=== PATIENT | male | born 1935 | race Caucasian/White ===

== ENCOUNTER 2016-07-25 11:17 | Observation (INO) | payer OTHER ==
--- NOTE | ~2016-07-25 | EKG ---
PATIENT: YANI BRUNSON UNIT #: [id number] Ventricular Rate: 75 BPM Atrial Rate: 258 BPM QRS Duration: 66 ms Q-T Interval: 418 ms QTC Calculation(Bezet): 466 ms P Neihart: 92 degrees Calculated R Neihart: 0 degrees Calculated T Neihart: 56 degrees Diagnosis Line: Atrial flutter with variable A-V block Diagnosis Line: Low voltage QRS Diagnosis Line: Septal infarct (cited on or before 25-JUL-2016) Diagnosis Line: Abnormal ECG Diagnosis Line: When compared with ECG of 22-JUN-2010 10:21, Diagnosis Line: Atrial flutter has replaced Sinus rhythm Diagnosis Line: ST now depressed in Inferior leads Diagnosis Line: QT has lengthened Diagnosis Line: Confirmed by LAUREL SAVAGE MD ([id number]) on Diagnosis Line: 07/25/2016 2:05:08 PM INTERPRETING MD: JANETTE ROGER
--- NOTE | ~2016-07-25 | CT71 ---
[facility] A Service of [facility] & [facility] RADIOLOGY TEXT RESULTS PATIENT: YANI BRUNSON LOCATION: [facility] 302-01 : 34 UNIT #: [id number] AGE: [address]: Vega Bender MD SEX: M ORDER DR: [id number] [facility] [place] [address] [facility] [place] [facility]. [place], [place] [address] [id number] MR#: [id number] Acc #: [id number] NAME: YANI BRUNSON : 1935 SEX: M STUDY DATE/TIME: 07/25/2016 13:22 UNIT: [place] ROOM: STUDY DESCRIPTION: CT Head Wo Contrast Attending Physician: Robert Sanchez M.D. Ordering Physician: Robert Sanchez M.D. Primary Care Physician: Tyson Mendosa M.D. MEDICAL IMAGING REPORT This report is preliminary unless electronic signature is present EXAM CT scan of the head without contrast INDICATIONS Ataxia, multiple falls in the last few weeks, slurred speech since yesterday. TECHNIQUE Unenhanced images were obtained through the brain. This CT exam was performed with one or more of the following radiation dose reduction techniques: automatic exposure control, adjustment of mA and/or kV according to patient size, and iterative reconstruction. FINDINGS There is mild generalized atrophy. There are no masses or extraaxial fluid collections or hemorrhage. IMPRESSION Mild atrophy, otherwise normal. Dictated by... Ramón Szymanski M.D. THIS IS AN ELECTRONICALLY VERIFIED REPORT Ramón Szymanski M.D. at 07/26/2016 7:04 AM Vignesh TD: 07/25/2016 17:36 JOB #: [id number] MEDICAL IMAGING REPORT Page 1 of 1 COPY
--- NOTE | ~2016-07-25 | MR18 ---
[facility] A Service of [facility] RADIOLOGY TEXT RESULTS PATIENT: YANI BRUNSON LOCATION: [facility] : 34 UNIT #: [id number] AGE: [address]: Vega Bender MD SEX: M ORDER DR: [id number] [facility] [address] [facility]. [place], [place] [address] [id number] I MR#: [id number] Acc #: [id number] NAME: YANI BRUNSON : 1935 SEX: M STUDY DATE/TIME: 07/26/2016 22:15 UNIT: C3A PCU ROOM: [facility] STUDY DESCRIPTION: MR Brain Wo Contrast Attending Physician: Vega Bender M.D. Ordering Physician: Fatuma Wong A.P.R.N. Primary Care Physician: Tyson Mendosa M.D. MRI CENTER REPORT This report is preliminary unless electronic signature is present. EXAM MRI brain without contrast INDICATION Loss of balance, ataxia and impaired speech over the past 5 weeks. PROCEDURE Multiplanar, multisequence MR imaging of the brain without the administration of contrast. COMPARISON 12/23/2014. FINDINGS There is generalized volume loss. Not unexpected for the patient's age. No restricted diffusion, abnormal hemorrhage, mass effect, extraaxial collection or hydrocephalus. Flow voids of major intracranial vessels are intact. The paranasal sinuses, mastoid air cells are clear. IMPRESSION No acute findings. No change from 12/23/2014. Dictated by... Rosalio Rodrigues M.D. THIS IS AN ELECTRONICALLY VERIFIED REPORT Rosalio Rodrigues M.D. at 07/30/2016 7:21 AM GLORIA/john TD: 07/27/2016 08:36 JOB #: [id number] [facility] A Service of [facility] RADIOLOGY TEXT RESULTS PATIENT: YANI BRUNSON LOCATION: [facility] : 34 UNIT #: [id number] AGE: [address]: Vega Bender MD SEX: M ORDER DR: MRI CENTER REPORT Page 1 of 1 COPY
--- NOTE | ~2016-07-25 | CO ---
Unit #: [id number] #: [id number] Patient: YANI BRUNSON [id number] [facility] [address] [facility]. [place], [place] [address] [id number] I MR#: [id number] NAME: YANI BRUNOSN ROOM: 302 Age: 81 Sex: M Admission Date: 07/25/2016 : 1935 Attending Physician: Vega Bender M.D. Primary Care Physician: Tyson Mendosa M.D. Requesting Physician: Vega Bender M.D. Consultation Date: 07/26/2016 CONSULTATION REPORT REASON FOR CONSULTATION Multiple falls. PATIENT IDENTIFICATION This is an 81-year-old right-handed male evaluated in room 302 at [facility]. SOURCE OF INFORMATION Patient, patient's numerical analysis group manager at the bedside, as well as the medical record. HISTORY OF PRESENT ILLNESS This is an 81-year-old right-handed male with past medical history of dementia, prostate cancer, colonic resection, who presents to [facility] with falls. He has a history of atrial fibrillation and atrial flutter. Apparently, he has been exhibiting multiple falls, per his numerical analysis group manager, for several weeks. He has actually been undergoing physical therapy at home and has just completed that physical therapy. He sees Dr. 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 He denies any dizziness, headache, orthostatic symptoms, vertigo, focal weakness or paresthesia, loss of consciousness, or lost of awareness. Apparently, he just saw his psychiatrist, Dr. Rebekah Colindres, on 07/24/2016 and medications were adjusted. Upon evaluation in the room, and discussion with the patient's numerical analysis group manager, she reports that he has had falls in the past but has been falling more recently with no particular pattern or complaints of focal symptoms. The patient is agitated and states that he has not been falling, however, his numerical analysis group manager reports otherwise. He is very impulsive. He is agitated. He raises his voice frequently. His speech is clear but he does mix his words in conversation. Jennings of vision are questionable. He has no tremor. He has a festinating gait on exam. His strength is equal. He does appear to have some concerns about proximal weakness whenever I evaluate his exam. His head CT shows atrophy but no acute findings, it was done without contrast on 07/25/2016. PAST MEDICAL HISTORY 1. Atrial fibrillation and atrial flutter with previous cardio[place] [address] Ash Sow. 2. Colon polyps. 3. Colon resection. 4. Insomnia. 5. Dementia with behavioral disturbance. 6. Prostate cancer, status post radiation. Unit #: [id number] #: [id number] Patient: YANI BRUNSON 7. Aortic stent. Records unknown. 8. Bilateral cataract surgery and blepharoplasty. 9. Hyperlipidemia. 10. Osteoarthritis. FAMILY HISTORY Noncontributory given his stated age of 81. SOCIAL HISTORY No reports of tobacco use or illicit drug use. He denies alcohol abuse, however, his numerical analysis group manager reports that he has a history of alcohol abuse and she has recently found alcohol in the home and dumped it and is concerned that he may still be drinking. REVIEW OF SYSTEMS A 14-point review of systems attempted, pertinent positives are as discussed above, otherwise negative. PHYSICAL EXAMINATION VITAL SIGNS: Temperature 98.2, pulse 66, respirations 16, blood pressure 108/74, oxygen saturation 100%. Height 5 feet 8 inches, weight 188 pounds. NEUROLOGIC: The patient is awake. He is alert. He is oriented to person, he is oriented to place. He does have some difficulty with the time. He states he knows who the president is. He has clear speech but has some trouble with comprehension and following commands. He does mix his words in conversation. He is very impulsive, agitated and raises his voice frequently. He raises his voice particularly at his numerical analysis group manager in the room and has to be asked to calm down. He is not violent at this time. CRANIAL NERVES: He has questionable jennings of vision bilaterally but no obvious field cut. Eyes are conjugate without ptosis or nystagmus. Extraocular movements are intact. Sensation to face and scalp is intact. Strength of muscles of facial expression is intact. Hearing is intact to voice. Tongue is midline. Uvula is midline. Palate elevation is normal. Head turning and shoulder shrugs unremarkable. Neck is supple. MOTOR: He demonstrates normal bulk and tone. Strength appears to be essentially equal with no tremor. However, on evaluating his gait, he does appear to have some possibly proximal weakness. He does not appear to have any bradykinesia. SENSORY: Intact. No extinction appreciated. No abnormal tone seen. GAIT: With evaluating his gait again, he appears to have a festinating gait. He also appears to have some possible proximal weakness. He does have trouble preventing himself from falling backwards, is slightly unsteady. He uses a cane to ambulate. ROMBERG: Negative. REFLEXES: Appear to be 1/4 on the right. appears to be hyperreflexive on the left, at least a 3/4. COORDINATION: Unremarkable. DIAGNOSTIC STUDIES LABORATORY: Urine drug screen unremarkable. CPK 115. Urinalysis unremarkable. TSH 0.73. CBC white count 5.1, hemoglobin 11.6, hematocrit 32.7, platelet count 237. BMP unremarkable other than an estimated GFR 46.5, albumin 3.4. PT 10.8, INR 1.0, PTT 30.3. IMAGING: Please see above. Chest x-ray no active disease. Unit #: [id number] #: [id number] Patient: YANI BRUNSON CARDIOVASCULAR: EKG atrial flutter with variable AV block, rate 75 beats per minute ventricular rate, atrial rate 258 beats per minute. IMPRESSION 1. Falls. 2. Dementia with behavioral disturbance, documented per psychiatric history. 3. Coronary artery disease. 4. History of atrial fibrillation, atrial flutter. 5. History of prostate cancer. PLAN 1. Patient has been seen recently by Dr. Larry according to the caregiver and the patient. We will request records. 2. Will request MRI of the brain. Would prefer a gadolinium given history of prostate cancer although he has impaired GFR. He does have a significantly impaired gait but no tremor or abnormal tone. 3. Significant behavioral impairment. Will follow with the above plan and further recommendations will be made pending workup and further clinical course. Case was discussed with Dr. Dalton who has seen the patient as well. We will follow along with you. We thank you very much for allowing us to assist in the care of this patient. Dictated by... Alysha Jalloh/alon TD: 07/27/2016 20:21 JOB #: [id number] CONSULTATION REPORT Page 1 of 1 X Fatuma Wong APRN X CONSULTATION REPORT
--- NOTE | ~2016-07-25 | CR72 ---
[facility] A Service of [facility] & [facility] RADIOLOGY TEXT RESULTS PATIENT: YANI BRUNSON LOCATION: [facility] : 34 UNIT #: [id number] AGE: [address]: Robert Sanchez MD SEX: M ORDER DR: [id number] [facility] [address] [facility]. [place], [place] [address] [id number] E MR#: [id number] Acc #: [id number] NAME: YANI BRUNSON : 1935 SEX: M STUDY DATE/TIME: 07/25/2016 12:18 UNIT: [facility] ROOM: STUDY DESCRIPTION: CR Chest Single View Portable Attending Physician: Robert Sanchez M.D. Ordering Physician: Robert Sanchez M.D. Primary Care Physician: Tyson Mendosa M.D. MEDICAL IMAGING REPORT This report is preliminary unless electronic signature is present EXAM Portable chest 07/25 INDICATIONS Slurred speech with multiple falls since yesterday. Former smoker. History of malignancy. FINDINGS AP portable chest was obtained. No comparison. Cardiac and mediastinal contours are normal. The lungs are clear. There is no pneumothorax. IMPRESSION No active disease. Dictated by... Tyson Beebe Jr., M.D. THIS IS AN ELECTRONICALLY VERIFIED REPORT Tyson Beebe Jr., M.D. at 07/25/2016 4:25 PM CHICO/stephanie TD: 07/25/2016 15:41 JOB #: [id number] MEDICAL IMAGING REPORT Page 1 of 1 COPY
--- NOTE | ~2016-07-25 | EKG ---
PATIENT: YANI BRUNSON UNIT #: [id number] Ventricular Rate: 65 BPM Atrial Rate: 267 BPM QRS Duration: 68 ms Q-T Interval: 422 ms QTC Calculation(Bezet): 438 ms P Marion: -65 degrees Calculated R Marion: -20 degrees Calculated T Marion: 58 degrees Diagnosis Line: Atrial flutter with 4:1 A-V conduction Diagnosis Line: Low voltage QRS Diagnosis Line: Cannot rule out Septal infarct (cited on or before Diagnosis Line: 25-JUL-2016) Diagnosis Line: Abnormal ECG Diagnosis Line: When compared with ECG of 25-JUL-2016 12:19, Diagnosis Line: No significant change was found Diagnosis Line: Confirmed by BRIAN CABALLERO MD ([id number]) on 08/01/2016 Diagnosis Line: 1:09:57 PM INTERPRETING MD: FEDERICO ROGER
--- NOTE | ~2016-07-25 | DS ---
Unit #: [id number] #: [id number] Patient: YANI BRUNSON [id number] [address] [place], [place] [address] [id number] I MR#: [id number] NAME: YANI BRUNSON ROOM: 302 Age: 81 Sex: M Admission Date: 07/25/2016 : 1935 Discharge Date: 07/28/2016 Attending Physician: Vega Bender M.D. Primary Care Physician: Tyson Mendosa M.D. DISCHARGE SUMMARY PRINCIPAL DISCHARGE DIAGNOSES 1. Multiple falls. 2. Atrial flutter. 3. Dementia. 4. Megaloblastic anemia. 5. Renal insufficiency stage 3 of unclear duration. 6. History of prostate cancer. 7. History of colonic polyps. 8. Peripheral arterial disease. PROCEDURES None. CONSULTANTS 1. Dr. Sow from Cardiology. 2. Dr. Dalton from Neurology. REASON FOR HOSPITALIZATION 81-year-old white male with history of AFib/flutter, previous cardioversion, history of colonic polyps, insomnia, dementia, prostate cancer, presents to the emergency room with multiple falls, slurred speech per caregivers. Patient a poor historian, did not really have orthostatic-like symptoms. No headache, dizziness or any other symptoms whatsoever. No injuries from the falls. Workup in the emergency room was unremarkable except for a BUN of 26, a GFR of 46, hemoglobin of 11.6 with an elevated MCV. EKG showed A-flutter with a variable response. TSH was normal. CPK was normal. Urinalysis normal. Chest x-ray normal. CT scan of the head normal. ER felt he needed to be admitted. On admission, the patient was placed on a monitored bed. Cardiology was consulted because of the A-flutter, started him on Toprol for better rate control. His Klonopin and Seroquel were discontinued. Atorvastatin was held. Orthostatics were checked. Over the next three days, he had one that was positive with a drop of 20 mmHg systolic and a raise in his pulse of more than 20 but the patient remained completely asymptomatic. Additional labs were sent. Urine drug screen was negative. C-reactive protein was 4.1. B12 was 517. MRI of the brain was within normal limits. Sed rate was 73. The patient had OT and PT recommended home health services. He will be discharged home today if it is okay with Dr. Sow, who has ordered and EKG for this morning. He will follow up with Dr. Mendosa in one week. He is on a regular diet. He is to have home health for OT and PT. CURRENT MEDICATIONS Unit #: [id number] #: [id number] Patient: YANI BRUNSON 1. Tylenol 500 mg q.h.s. p.r.n. 2. Remeron 15 mg p.o. q.h.s. 3. Zoloft 50 mg p.o. q.h.s. 4. He was started on Amantadine 100 mg b.i.d. by Neurology for some Parkinson symptoms. 5. Toprol XL 25 mg p.o. daily by Cardiology. 6. He is to resume his home dose of Namenda XR 28 mg p.o. q.a.m. 7. Aricept 10 mg p.o. q.h.s. 8. Ditropan XL 5 mg p.o. q.h.s. 9. Atorvastatin 10 mg p.o. q.h.s. 10. Multivitamins two daily. 11. Aspirin 81 mg daily. Seroquel and clonazepam are to be discontinue. His Celebrex was also discontinue during this admission. Dictated by... Vega Bender M.D. CONSTANZA/obdulio TD: 07/30/2016 09:55 JOB #: [id number] DISCHARGE SUMMARY Page 1 of 1 X Vega Bender MD X DISCHARGE SUMMARY
--- NOTE | ~2016-07-25 | HP ---
Unit #: [id number] #: [id number] Patient: YANI BRUNSON [id number] [address] [place], [place] [address] [id number] I MR#: [id number] NAME: YANI BRUNSON ROOM: 302 Age: 81 Sex: M Admission Date: 07/25/2016 : 1935 Attending Physician: Vega Bender M.D. Primary Care Physician: Tyson Mendosa M.D. HISTORY AND PHYSICAL HISTORY OF PRESENT ILLNESS An 81-year-old white male, history of A fib/flutter with previous cardioversion [place] [address] Ash Sow, history of colonic polyps, history of colonic resection for same, insomnia, dementia, history of prostate cancer status post radiation seed implants in the distant past. Presents to the emergency room with multiple falls and slurred speech, per caregivers. In the ER he was worked up and essentially had a negative workup and was admitted for further evaluation and therapy. The patient is a very poor historian. He tends to drift off. He has trouble even remembering his primary care physician, who is Dr. Mendosa. He states that he has had some kind of athletic heart since he was a young child with an irregular heartbeat, but obviously this is probably not the case. He denies any dizziness, headaches, orthostatic-like symptoms, vertigo. He states that he has been seeing a neurologist and had physical therapy on an outpatient basis, but I have no notes of same. Apparently he just saw Dr. Louis, the psychiatrist, on the , and his medicines were adjusted. He was apparently placed on Remeron at that time and told to stop his Seroquel, which is still on his med list, and I am not sure he is taking either, both or neither. In any case, again, he is admitted for further evaluation and therapy. ALLERGIES He has no known drug allergies. MEDS PRIOR TO ADMISSION 1. Aspirin 81 mg weekly. 2. Celebrex 200 mg daily. 3. Atorvastatin 10 mg daily. 4. Ditropan XL 5 mg q.h.s. 5. Aricept 10 mg q.h.s. 6. Tylenol p.r.n. 7. Multivitamin one daily. 8. Clonazepam 2 mg q.h.s. 9. Seroquel XR 50 mg q.h.s. 10. Namenda XR 28 mg daily. 11. Zoloft 50 mg q.h.s. 12. Remeron 15 mg q.a.m. PAST MEDICAL/SURGICAL HISTORY Again, he has had a colon resection for, what is best I can tell is, adenomatous polyps. He has a stent in his aorta, which I suspect is for AAA, but there is no record of same, and the patient is unsure. Again, he had seed implants for prostate cancer. He has had bilateral cataract surgery and blepharoplasty. He has, again, a history of A fib/flutter with Unit #: [id number] #: [id number] Patient: YANI BRUNSON cardioversion in the past, diverticulosis, prostate cancer, osteoarthritis, dementia, hyperlipidemia, insomnia. SOCIAL HISTORY Nonsmoker, nondrinker, no street drug use. FAMILY HISTORY Family history is noncontributory. PHYSICAL EXAMINATION VITALS: He is afebrile. Pulse is 55, respirations 20, blood pressure 127/65, O2 sat is 97% on room air. HEENT: Unremarkable. NECK: Neck was supple without JVD, bruits, adenopathy or thyromegaly. CHEST: Clear to auscultation. CARDIOVASCULAR: Heart is irregularly irregular without an S3 gallop or murmur appreciated. ABDOMEN: Abdomen was soft, nondistended, nontender with positive bowel sounds and no hepatosplenomegaly. EXTREMITIES: Extremities showed no clubbing, cyanosis or edema. /RECTAL: Deferred. NEUROLOGIC: Exam shows no focal deficits. DIAGNOSTIC STUDIES LAB VALUES: Coags normal. CMP normal except for BUN of 26, GFR of 46.5, and an albumin of 3.4. CBC is normal except for a hemoglobin of 11.6 with an elevated MCV. CARDIOVASCULAR: EKG shows atrial flutter with a variable AV block, low voltage QRS and evidence of a septal infarct. TSH was normal. CPK was normal. Urinalysis normal. IMAGING: Chest x-ray - No active disease. CT scan of the head - Mild atrophy and was otherwise within normal limits. IMPRESSION 1. Multiple falls of unclear etiology. 2. Dementia. 3. A fib/flutter. 4. Macrocytic anemia. 5. Renal insufficiency of unknown duration. 6. Peripheral arterial disease status post abdominal aortic stent. 7. History of colonic polyp status post colon resection. 8. History of prostate cancer status post seed implant. PLAN Will discontinue his Klonopin, discontinue the Seroquel, resume the aspirin at a dose of daily 81 mg. Will discontinue his Celebrex. Hold the atorvastatin. Consult cardiology. Consult neurology. Check orthostatics, a B12 because of his macrocytic anemia. Check a sed rate and CRP for possible polymyalgia rheumatica. PT and OT have been consulted. manager community development is consulted for possible rehab or halfway placement at time of discharge. Please note the patient is on Lovenox. Dose adjusted for renal insufficiency and age for DVT prophylaxis. Further evaluation pending results of the above. Unit #: [id number] #: [id number] Patient: YANI BRUNSON Dictated by Laverne Paul/kyra TD: 07/26/2016 07:38 JOB #: [id number] HISTORY AND PHYSICAL Page 1 of 1 X Vega Bender MD X HISTORY AND PHYSICAL
--- NOTE | ~2016-07-25 | CO ---
Unit #: [id number] #: [id number] Patient: YANI BRUNSON [id number] [facility] [address] [place], [place] [address] [id number] MR#: [id number] NAME: YANI BRUNSON ROOM: 302 Age: 81 Sex: M Admission Date: 07/25/2016 : 1935 Attending Physician: Vega Bender M.D. Primary Care Physician: Tyson Mendosa M.D. Consultation Date: 07/26/2016 CONSULTATION REPORT PRIMARY TRADITIONAL [facility] PRACTITIONER Ash Sow. PRIMARY CARE PHYSICIAN Dr. Mendosa. REASON FOR CONSULT Atrial flutter. HISTORY OF PRESENT ILLNESS Mr. Brunson is an 81-year-old male, who had a previous history of atrial fibrillation/flutter with cardioversion in 2010. He was on Pradaxa and amiodarone, but was taken off that in 2012 as he remained in sinus rhythm. He has been noted to have several falls lately per caregivers. He fell out of a chair yesterday and has had a shuffling gait upon standing as well as some unsteadiness. He had some slurred speech yesterday morning and was brought to the [facility] Emergency Room. He was admitted to Dr. Mendosa. He has been noted to have some elevated ventricular rates and Cardiology was consulted. During my interview, currently he is sitting up in a chair, very upset that he is hospitalized. He thinks that this is all ridiculous and he does not need to be here. This information is from the patient's interview as well as from record review. His prior cardiac testing history includes BETH with cardioversion in 2010, which showed an ejection fraction of 45% to 50%. He has been followed regularly by Dr. Ash Sow. I do not see any repeat testing that has been completed. PAST MEDICAL HISTORY Include; 1. Atrial fibrillation/flutter with cardioversion in 2010, taken off Pradaxa and amiodarone in 2012. 2. Colonic polyp. 3. Colon resection. 4. Insomnia. 5. Vascular dementia. 6. Prostate cancer with seed implants. 7. Aortic abdominal aneurysm with stent placement. 8. TIA one year ago. 9. Hyperlipidemia. 10. Coronary artery disease with stent placement in 2002. 11. 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 12. Cataract surgery. Unit #: [id number] #: [id number] Patient: YANI BRUNSON 13. First-degree AV block. 14. Ulcerative colitis. 15. Obstructive sleep apnea. ALLERGIES No known drug allergies. HOME MEDICATIONS They include aspirin 81 mg every Saturday, Celebrex 200 mg q.a.m., atorvastatin 10 mg q.h.s., Ditropan 5 mg q.h.s., benazepril 10 mg q.h.s., clonazepam 2 mg q.h.s., Seroquel 50 mg q.h.s., Namenda 28 mg every morning, Zoloft 50 mg q.h.s., Remeron 15 mg q.a.m., multivitamin daily, and Tylenol 650 q.6 hours p.r.n. pain. SOCIAL HISTORY He states he quit smoking 12 years ago and that he has not been using any alcohol. However, his caregiver states that she recently dumped some bottles of liquor down the toilet that she found recently. Denies any use of drugs. FAMILY HISTORY He states there has been no heart problems in first-degree relatives. REVIEW OF SYSTEMS GENERAL: He suffers with insomnia, only sleeping 2 hours at a time each night. Denies any fever, chills, flu-like symptoms, or unintentional weight loss. SKIN: Denies any rashes or ulcerations, but does have scrapes on bilateral elbows from falls. HEAD: Headaches, denies. EYES: He has peripheral vision dimming and is following with Anshul and Agustin. EARS: Denies any sudden change in hearing. BLEEDING: Denies epistaxis, hemoptysis, hematuria, or melena. THROAT: Denies any problems with swallowing. LUNGS: Denies any wheeze, but positive for coughing with eating, but no shortness of breath. CHEST: Denies any pain, palpitations, or tachycardia. He has recent PND, but no orthopnea. GI: Denies any nausea, vomiting, diarrhea, constipation, or change in stools. GENITOURINARY: Denies any burning or urgency. EXTREMITIES: Denies any swelling or increased pain with walking. NEUROLOGIC: Denies any numbness, tingling, seizures, stroke-like symptoms, but has had occasional dizziness and obviously unsteadiness and falls. PHYSICAL EXAMINATION VITAL SIGNS: Blood pressure is 112/68, heart rate is 140, respirations 20, temperature is 98.3, 94% oxygenated on room air, 189 pounds. GENERAL: Well-developed, well-nourished, elderly looking white male, sitting in a chair. No obvious decompensation. SKIN: Thin, but intact. HEENT: Eyes; PERRLA. No xanthelasma. Oral; moist mucous membranes. No pallor. NECK: No carotid bruits auscultated bilaterally. SPINE: No scoliosis. CHEST: Clear to auscultation bilaterally. No wheezes, rales, or rhonchi. Unit #: [id number] #: [id number] Patient: YANI BRUNSON CARDIAC: S1 and S2. Tachycardia. Difficulty hears certain tones. ABDOMEN: Soft and nontender. Positive bowel sounds. EXTREMITIES: Bilateral pedal pulses +1. No edema. NEUROLOGIC: He is alert and oriented. However, he struggles very much to make sure that he appears as though he has no decompensation of his memory. Caregivers at the bedside were able to interject and clarifying certain questions during my interview. DIAGNOSTIC STUDIES Current labs/tests include. IMAGING STUDIES: CT of the head shows mild atrophy, otherwise normal. Chest x-ray shows no active disease. LABORATORY RESULTS: Urinalysis is negative for infection. TSH 0.73. Hemoglobin 11.6, hematocrit 32.7, platelets 237, and white blood cell count 5.1. Sodium 136, potassium 4.9, BUN 29, creatinine 1.4, AST 25, ALT 20, albumin 3.4, magnesium 1.8. PT 10.8, INR 1.0. CARDIOVASCULAR STUDIES: EKG shows atrial flutter with a variable AV block and a ventricular rate of 75. IMPRESSION 1. Frequent falls and unsteady gait. 2. Atrial flutter with a rapid ventricular rate. 3. Vascular dementia. 4. PVD with abdominal aortic aneurysm and stent. 5. Hyperlipidemia. 6. Previous alcohol abuse. Questionable current use. PLAN I discussed Mr. Brunson in depth with Dr. Sow, and at this point, we will try to control heart rate with digoxin and beta-rosario. He may require some low-dose Cardizem. No anticoagulation with history of recent falls. Further recommendations per Dr. Sow today. Dictated by... Kristie [email or web address]. for Laverne Foster/marta TD: 07/27/2016 16:14 JOB #: [id number] CONSULTATION REPORT Page 1 of 1 X X CONSULTATION REPORT
[~2016-07-25 11:17] MED LIST: ACETAMINOPHEN; ASPIRIN81 M2 PO; CELECOXIB200 MG PO; DITROPAN5 MG DOB; DONEPEZIL HCL10 MG PO; FLECTOR1 EACH TP; KLONOPIN2 MG PO; MULTI VITAMIN1 EACH PO; SEROQUEL XR50 MG PO; ZOCOR20 MG PO
[2016-07-25] MEDS ORDERED: CELECOXIB200 MG PO (11:48)
[2016-07-25] MEDS ORDERED: ATORVASTATIN CA10 MG PO (11:48)
[2016-07-25] MEDS ORDERED: DITROPAN XL PO (11:48)
[2016-07-25] MEDS ORDERED: ASPIRIN81 M2 PO (11:48)
[2016-07-25] MEDS ORDERED: DONEPEZIL HCL10 MG PO (11:49)
[2016-07-25] MEDS ORDERED: CLONAZEPAM2 MG PO (11:49)
[2016-07-25] MEDS ORDERED: REMERON PO (11:50)
[2016-07-25] MEDS ORDERED: NAMENDA XR28 MG PO (11:50)
[2016-07-25] MEDS ORDERED: SEROQUEL XR50 MG PO (11:50)
[2016-07-25] MEDS ORDERED: ZOLOFT PO (11:50)
[2016-07-25] MEDS ORDERED: ACETAMINOPHEN PO (11:51)
[2016-07-25] MEDS ORDERED: MULTIVITAMINS1 EAC3 PO (11:51)
[2016-07-25 13:08] LABS: BASOPHIL# 0.1 X10e3 (0-0.3); BASOPHIL% 1.3 % (0-2.5); EOSINOPHIL# 0.4 X10e3 (0-0.7); HEMATOCRIT 32.7 % (38.0-50.0); HEMOGLOBIN 11.6 gm/dL (13.0-16.0); LYMPHOCYTE# 0.8 X10e3 (1.0-3.5); LYMPHOCYTE% 16.1 % (17.0-45.0); MEAN CELL VOLUME 106.7 FL (83-96); MEAN CORPUSCULAR HEMOGLOBIN 37.7 PG (28-34); MEAN CORPUSCULAR HGB CONC 35.3 g/dL (30-36); MEAN PLATELET VOLUME 8.2 FL (6.5-11.5); MONOCYTE# 0.7 X10e3 (0-1.0); MONOCYTE% 14.5 % (3.0-12.0); NEUTROPHIL% 60.1 % (40-75); PLATELET COUNT 237 X10e3 (140-420); RED BLOOD COUNT 3.06 X10e (3.90-5.60); RED CELL DISTRIBUTION WIDTH 12.6 % (11.0-15.5); WHITE BLOOD COUNT 5.1 X10e3 (4.0-10.5)
[2016-07-25 13:09] LABS: DIFF IND YES
[2016-07-25 13:17] LABS: PARTIAL THROMBOPLASTIN TIME 30.3 SECONDS (23.5-31.3); PROTHROMBIN TIME (PATIENT) 10.8 SECONDS (9.6-11.5)
[2016-07-25 13:35] LABS: ALBUMIN SERUM 3.4 g/dL (3.5-5.0); BILIRUBIN, DIRECT 0.1 mg/dL (0.0-0.2); BILIRUBIN,INDIRECT 0.5 mg/dL (0.0-0.9); BILIRUBIN,TOTAL 0.6 mg/dL (0.2-2.0); BUN/CREATININE RATIO 18.57; CALCIUM SERUM 8.8 mg/dL (8.4-10.2); CREATININE SERUM 1.4 mg/dL (0.6-1.4); GLOM FILT RATE Estimated 46.5 mL/min (>60); MAGNESIUM 1.8 mg/dL (1.6-3.0); POTASSIUM 4.9 mmol/L (3.5-5.1); PROTEIN TOTAL SERUM 6.5 g/dL (6.0-8.3)
[2016-07-25 13:50] LABS: ANISOCYTOSIS SL; PLATELET ESTIMATE NORMAL (NORMAL); RBC NORMAL YES
[2016-07-25 14:55] LABS: URINE SOURCE CLEAN CATCH
[2016-07-25 15:16] LABS: URINE APPEARANCE CLEAR; URINE BILIRUBIN NEG (NEG); URINE BLOOD NEG (NEG); URINE COLOR YELLOW; URINE GLUCOSE NEG (NEG); URINE KETONE NEG (NEG); URINE LEUKOCYTE ESTERASE NEG (NEG); URINE NITRATE NEG (NEG); URINE PH 5.5 (5-8); URINE PROTEIN NEG (NEG); URINE SPECIFIC GRAVITY 1.011 (1.003-1.035); URINE UROBILINOGEN 0.2 MG/DL (NEG)
[2016-07-25 15:17] LABS: CULTURE INDICATED? NO
[2016-07-26 14:39] LABS: AMPHETAMINE NEG (NEG); BARBITURATES NEG (NEG); BENZODIAZEPINES NEG (NEG); COCAINE NEG (NEG); MARIJUANA NEG (NEG); OPIATES NEG (NEG); TRICYCLIC ANTIDEPRESSANTS NEG (NEG); U METHADONE NEG (NEG)
[2016-07-27 05:20] LABS: HEMATOCRIT 33.8 % (38.0-50.0); HEMOGLOBIN 12.1 gm/dL (13.0-16.0); MEAN CORPUSCULAR HEMOGLOBIN 38.1 PG (28-34); MEAN CORPUSCULAR HGB CONC 35.6 g/dL (30-36); MEAN PLATELET VOLUME 8.3 FL (6.5-11.5); RED BLOOD COUNT 3.16 X10e (3.90-5.60); RED CELL DISTRIBUTION WIDTH 12.6 % (11.0-15.5); WHITE BLOOD COUNT 5.2 X10e3 (4.0-10.5)
[2016-07-28] MEDS ORDERED: SYMMETREL100 M1 PO (11:59)
[2016-07-28] MEDS ORDERED: METOPROLOL SUCC25 MG PO (12:00)
== END 2016-07-28 13:41 | disposition home or self-care (01) ==
LOC: CED 11:17 → C3A PCU 20:11
PROVIDERS: Emergency Medicine; Internal Medicine
DX: R29.6 Repeated falls (principal); R26.81 Unsteadiness on feet; I48.92 Unspecified atrial flutter; Z79.01 Long term (current) use of anticoagulants; D53.1 Other megaloblastic anemias, not elsewhere classified; N28.9 Disorder of kidney and ureter, unspecified; I73.9 Peripheral vascular disease, unspecified; F01.50 Vascular dementia, unspecified severity, without behavioral disturbance, psychotic disturbance, mood disturbance, and anxiety; E78.5 Hyperlipidemia, unspecified; Z86.010 Personal history of colon polyps; Z85.46 Personal history of malignant neoplasm of prostate; M19.90 Unspecified osteoarthritis, unspecified site; Z79.82 Long term (current) use of aspirin; Z87.891 Personal history of nicotine dependence; Z90.49 Acquired absence of other specified parts of digestive tract
CPT/HCPCS: 70450; 70551; 71010; 80048; 80076; 80307; 81003; 82550; 82607; 82947; 83735; 84443; 85025; 85027; 85610; 85652; 85730; 86140; 93005; 96372; 96374; 97116; 97161; 97166; 97535; 99291; G0378; G8978-GP; G8979-GP; G8987-GO; G8988-GO; J1650; J3490

== ENCOUNTER → 2016-08-01 | Outpatient (CLI) | payer OTHER ==
[~2016-08-01] MED LIST changes: +ACETAMINOPHEN PO; +ATORVASTATIN CA10 MG PO; +CLONAZEPAM2 MG PO; +DITROPAN XL PO; +METOPROLOL SUCC25 MG PO; +MULTIVITAMINS1 EAC3 PO; +NAMENDA XR28 MG PO; +REMERON PO; +SYMMETREL100 M1 PO; +ZOLOFT PO
[2016-08-01 15:30] LABS: BASOPHIL# 0.2 X10e3 (0-0.3); EOSINOPHIL# 0.2 X10e3 (0-0.7); EOSINOPHIL% 1.5 % (0.0-7.0); HEMATOCRIT 34.5 % (38.0-50.0); HEMOGLOBIN 11.6 gm/dL (13.0-16.0); LYMPHOCYTE# 1.4 X10e3 (1.0-3.5); LYMPHOCYTE% 9.2 % (17.0-45.0); MEAN CELL VOLUME 105.2 FL (83-96); MEAN CORPUSCULAR HEMOGLOBIN 35.5 PG (28-34); MEAN CORPUSCULAR HGB CONC 33.8 g/dL (30-36); MEAN PLATELET VOLUME 8.1 FL (6.5-11.5); MONOCYTE# 1.3 X10e3 (0-1.0); MONOCYTE% 8.5 % (3.0-12.0); NEUTROPHIL# 11.8 X10e3 (1.5-7.1); NEUTROPHIL% 79.8 % (40-75); PLATELET COUNT 282 X10e3 (140-420); RED BLOOD COUNT 3.28 X10e (3.90-5.60); RED CELL DISTRIBUTION WIDTH 12.6 % (11.0-15.5); WHITE BLOOD COUNT 14.9 X10e3 (4.0-10.5)
[2016-08-01 15:33] LABS: DIFF IND YES
[2016-08-01 15:51] LABS: BLOOD UREA NITROGEN 23 mg/dL (9-23); BUN/CREATININE RATIO 19.16; CALCIUM SERUM 9.2 mg/dL (8.4-10.2); CARBON DIOXIDE 26 mmol/L (22-31); CHLORIDE 101 mmol/L (100-111); CREATININE SERUM 1.2 mg/dL (0.6-1.4); GLUCOSE FASTING 102 mg/dL (70-110); MAGNESIUM 1.7 mg/dL (1.6-3.0); PLATELET ESTIMATE NORMAL (NORMAL); POTASSIUM 4.1 mmol/L (3.5-5.1); RBC NORMAL YES; SODIUM 138 mmol/L (135-145)
[2016-08-01 15:54] LABS: ALCOHOL BLOOD <5 mg/dL (0)
== END | disposition home or self-care (01) ==
LOC: CLAB 14:52
DX: I25.10 Atherosclerotic heart disease of native coronary artery without angina pectoris (principal)
CPT/HCPCS: 36415; 80048; 83735; 85025; G0480